=== PATIENT | female | born 1970 | race Caucasian/White ===

== ENCOUNTER → 2021-10-30 | Outpatient (CLI) | payer OTHER | LOC: M.WC 07:59 | PROVIDERS: ATTEND Family Medicine | DX: E11.621 Type 2 diabetes mellitus with foot ulcer (principal); L97.522 Non-pressure chronic ulcer of other part of left foot with fat layer exposed; E11.42 Type 2 diabetes mellitus with diabetic polyneuropathy; E89.0 Postprocedural hypothyroidism; Z79.84 Long term (current) use of oral hypoglycemic drugs; Z79.899 Other long term (current) drug therapy; Z90.49 Acquired absence of other specified parts of digestive tract ==

== ENCOUNTER 2021-11-04 22:27 | Inpatient (IN) | payer OTHER ==
[~2021-11-04] VITALS: Ht 172.7 cm; Wt 158.8 kg
--- NOTE | ~2021-11-04 | OP ---
[address] [address] OPERATIVE REPORT Name: ANNA MEDINA Room: [address] IN M.R.#: [id number] Admission: 11/05/21 Attend Phys: Mendoza Shelby MD Discharge: Date of : 74 Report #: [id number] THIS REPORT FOR: cc: Suzette Cordon MD, Tuongvan T. MD Rizzi, Raymond M. DPM ~ DATE OF SURGERY: 11/11/2021 PREOPERATIVE DIAGNOSIS: Left gas gangrene foot. POSTOPERATIVE DIAGNOSIS: Left gas gangrene foot. PROCEDURE: Delayed wound closure with debridement, subcutaneous and tendon, approximately an 8 x 5 cm debridement area at about 2 cm in depth. It was excisional. ANESTHESIA: General with a local block consisting of 10 mL of 0.5% Marcaine. TOURNIQUET: None. DESCRIPTION OF PROCEDURE: The patient was transferred to the operating room and placed on the operating table in supine position. General anesthesia was administered and left lower extremity was prepped and draped in the usual sterile manner. Previous partial first ray resection was evaluated. There was noted to be sparse areas and islands of necrotic tissue and friable tissue, which was removed with a 15 blade and Metzenbaum scissors. I also trimmed up the edges of the wound to make it healthy and take away any compromised tissue. I noted good bleeding tissue and was done doing this and all tendinous material, capsular material or tissue present I removed with the Metzenbaum scissors and tenotomy. I washed it out thoroughly with normal saline, bacitracin and then closed the wound using 2-0 nylon simple suture technique. Dressed with Xeroform, fluffs, Florentino, and Kerlix and Ford bandage. Delayed wound closure and debridement were done. This is subcutaneous excisional of the subcutaneous and tendinous tissue. By: [id number] Davis DPM /nt
[2021-11-04 22:34] VITALS: BP 136/80
[2021-11-04] MEDS ORDERED: LISINOPRIL30 MG PO (22:40)
[2021-11-04] MEDS ORDERED: METFORMIN HCL500 M3 PO (22:40)
[2021-11-04] MEDS ORDERED: FARXIGA5 MG PO (22:40)
[2021-11-04] MEDS ORDERED: OZEMPIC0.25 MG/0. SUBQ (22:41)
[2021-11-04] MEDS ORDERED: LEVO-T75 MCG PO (22:41)
[2021-11-05 01:40] LABS: ABSOLUTE LYMPHOCYTES 1.1 thou/uL (0.8-5.3); ABSOLUTE MONOCYTES 0.8 thou/uL (0.0-1.2); ABSOLUTE NEUTROPHILS 11.2 thou/uL (1.6-8.1); BASOPHILS 0.4 %; EOSINOPHILS 0.3 %; HEMATOCRIT 30.5 % (37.0-47.0); HEMOGLOBIN 10.5 gm/dL (12.0-15.0); LYMPHOCYTES 8.2 %; MCHC 34.4 g/dL (28.0-37.0); MONOCYTES 6.3 %; MPV 6.8 fl. (7.2-11.1); NUCLEATED RBCS 0 /100WBC; PLATELET COUNT* 504 thou/uL (150-400); POLYS 84.8 %; RDW-CV 14.3 % (10.5-14.5); WBC 13.2 thou/uL (4.0-11.0)
[2021-11-05 01:53] LABS: CALCIUM 8.9 mg/dL (8.5-10.1); CREATININE 1.6 mg/dL (0.6-1.3); POTASSIUM 4.3 mmol/L (3.5-5.1)
[2021-11-05 01:54] LABS: APTT 33.4 Seconds (25.0-31.3); INR 1.1; PROTIME 11.7 Seconds (9.20-11.50)
[2021-11-05 01:57] LABS: ALBUMIN 2.4 g/dL (3.4-5.0); MAGNESIUM 2.3 mg/dL (1.8-2.4); TOTAL BILIRUBIN 0.5 mg/dL (<0.1-1.0)
[2021-11-05 02:13] LABS: BE -0.4 mmol/L (-2 to +3); PCO2 30.7 mmHg (35.0-45.0)
[2021-11-05 02:24] LABS: PO2 57.2 mmHg (75.0-100.0)
[2021-11-05 05:41] VITALS: BP 115/85
[2021-11-05 06:14] LABS: URINE BLOOD NEGATIVE (Negative); URINE CLARITY SL CLOUDY; URINE COLOR YELLOW; URINE GLUCOSE-RANDOM 3+ (Negative); URINE KETONES TRACE (Negative); URINE LEUKOCYTES-REFLEX TRACE (Negative); URINE NITRITE-REFLEX NEGATIVE (Negative); URINE PROTEIN 1+ (Negative); URINE UROBILINOGEN 0.2 E.U./dl (0.2-1.0)
[2021-11-05 06:18] LABS: ICTOTEST (BILI CONFIRMATORY) Negative (Negative); URINE BILIRUBIN 1+ (Negative)
[2021-11-05 06:51] LABS: YEAST-REFLEX Present (None Seen)
[2021-11-05 06:53] LABS: FINE GRANULAR CASTS >10 Many /LPF (None Seen); SQUAMOUS 0-3 Few /LPF (0-3); URINE WBC-REFLEX 6-15 Few /HPF (0-5)
[2021-11-05 06:54] LABS: URINE RBC None Seen /HPF (0-2)
[2021-11-05 06:55] LABS: CRYSTALS None Seen /LPF (None Seen)
[2021-11-05 10:46] VITALS: BP 136/88
[2021-11-05 14:44] VITALS: BP 133/65
[2021-11-05 16:36] VITALS: BP 138/78
[2021-11-05 17:00] VITALS: BP 115/62
--- NOTE | 2021-11-05 17:51 | NUR ---
THE PATIENT ARRIVED AT 1650. THE PATIENT IS ALERT X4. LEFT TOE WOUND OPEN AND DRAINAGE NOTED. DENIES PAIN. LAST BOWEL MOVEMENT 11/05/21. LUNG DIMINSHED. THE PATIENT IS UP AD RELL. CALL LIGHT WITHIN REACH.
[2021-11-05 22:30] VITALS: BP 125/74
[2021-11-06] VITALS: BP 117/66
[2021-11-06 03:58] LABS: HEMATOCRIT 26.6 % (37.0-47.0); HEMOGLOBIN 8.7 gm/dL (12.0-15.0)
[2021-11-06 04:00] VITALS: BP 121/72
--- NOTE | 2021-11-06 05:36 | NUR ---
PT AO X4, WENT TO SURGERY ON RT FOOT. SURGICAL BANDAGE WRAPPED WITH MEGAN. PT UP TO BSC AND THEN HAD SOME BLEEDING. FOOT ELEVATED AND DRAINAGE OUTLINED FOR MONITOR. NO COMPLAINT OF PAIN. VSS, PT ON 2L PER NC CALL LIGHT IN REACH AND ENCOURAGED.
--- NOTE | 2021-11-06 10:12 | NUR ---
Pt is admitted to the hospital on 11/05/21 with Toe Ulcer, Cellulitis, and Covid Pneumonia. Pt is alert and oriented. Pt lives in a house with 4 steps to enter. Pt reports she was independent with ADL's and Mobility. NO hx of DME, HH, or SNF. Pt had an initial appointment in the wound care center but was schedulted for her second appointment today. Pt has no hx of IV antibiotics at home. CM to follow for possible need of IV antibiotics at home and home health.
[2021-11-06 12:43] LABS: HEMOGLOBIN 9.3 gm/dL (12.0-15.0); MCH 29.6 pg (26.0-34.0); MCHC 33.3 g/dL (28.0-37.0); MCV 88.7 fL (80.0-100.0); MPV 6.8 fl. (7.2-11.1); NUCLEATED RBCS 0 /100WBC; PLATELET COUNT* 526 thou/uL (150-400); RBC 3.15 mil/uL (4.20-5.00); RDW-CV 14.1 % (10.5-14.5); WBC 11.8 thou/uL (4.0-11.0)
[2021-11-06 12:51] VITALS: BP 147/80
[2021-11-06 12:56] LABS: ALBUMIN 1.9 g/dL (3.4-5.0); CALCIUM 8.8 mg/dL (8.5-10.1); CREATININE 1.6 mg/dL (0.6-1.3); TOTAL BILIRUBIN 0.3 mg/dL (<0.1-1.0); TOTAL PROTEIN 7.1 g/dL (6.4-8.2)
[2021-11-06 13:23] LABS: ABSOLUTE BASOPHILS 0.1 thou/uL (0.0-0.2); ABSOLUTE LYMPHOCYTES 1.3 thou/uL (0.8-5.3); ABSOLUTE MONOCYTES 0.5 thou/uL (0.0-1.2); ABSOLUTE NEUTROPHILS 9.9 thou/uL (1.6-8.1); PLATELET ESTIMATE INCREASED
[2021-11-06 15:45] VITALS: BP 122/74
--- NOTE | 2021-11-06 18:58 | H ---
[place] [address] HISTORY AND PHYSICAL Name: ANNA MEDINA Room: [address] IN M.R.#: [id number] Admission: 11/05/21 Attend Phys: Mendoza Shelby MD Discharge: Date of : 74 Report #: [id number] THIS REPORT FOR: cc: Suzette Cordon MD, Tuongvan T. MD Rizzi, Raymond M. DPM ~ ADMIT DATE: 11/05/2021 INTRODUCTION: This is a 50-year-old white female with a left foot infection with gas gangrene. HISTORY OF PRESENT ILLNESS: This is a 50-year-old white female who was seen at [facility] with a left foot necrotic hallux. The patient said the wound was first seen by another physician on Tuesday, but the wound has been progressing since then, increased redness, increased swelling, increased drainage and odor. PAST MEDICAL HISTORY: Noted for diabetes, neuropathy, hypertension, hypothyroidism. MEDICATIONS: Farxiga, metformin, lisinopril, Ozempic and levothyroxine. ALLERGIES: SULFA. FAMILY HISTORY: Noncontributory PREVIOUS SURGERIES: Noncontributory. SOCIAL HISTORY: The patient has no history of recreational drugs. No history of alcohol use. PHYSICAL EXAMINATION: GENERAL: Well-developed, well-nourished female in no acute distress. HEENT: PERRLA. NECK: Supple. HEART: Regular rate and rhythm. LUNGS: Clear to auscultation. EXTREMITIES: Lower extremity exam shows a very erythematous left foot, especially in the medial column and first and second areas with redness over the total dorsal aspect of the foot. There is a strong odor and that left hallux looks nonviable. She has an area about 4 cm proximal to the base of the proximal phalanx of the hallux. There is necrotic patch and a purplish hue presenting as most likely necrotic tissue. There is also some fluct[place] [address] HISTORY AND PHYSICAL Name: ANNA MEDINA Room: [address] IN ..#: [id number] Admission: 11/05/21 Attend Phys: Mendoza Shelby MD Discharge: Date of : 74 Report #: [id number] DIAGNOSTIC DATA: X-ray showed gas in this area. LABORATORY DATA: The patient's blood sugar is 281. White blood cell count is 13.2. Blood flow is palpable to posterior tib, but not the dorsalis pedis of the left foot. ASSESSMENT AND PLAN: The patient has gas gangrene of left foot with a necrotic left hallux. The patient is set up for a surgery as soon as possible for a partial first ray resection. This surgery will be staged. We will try to see if we can save as much as the foot as possible by doing just a minimal today of removing all necrotic tissue and stopping the process of this gas gangrene and significant infection. The patient understands she has a possibility of having a transmet here in the next couple days as well depending on what we see intraoperatively. The patient is n.p.o. and I have talked to the ER involved and also the OR for surgery as soon as possible. <ELECTRONICALLY SIGNED> By: Pete Davis DPM 11/06/21 1858 [id number] [id number] Davis DPM /nt
--- NOTE | 2021-11-06 18:58 | NUR ---
CM FOLLOWUP PT NOT MED CLEAR. PT POSTOP AND MAY NEED IV ANTIBIOTICS. PT EXPECTED TO REMAIN AT [facility] THROUGH [facility]KN[facility]. CM TO FOLLOW.
--- NOTE | 2021-11-06 18:58 | OP ---
[address] [address] OPERATIVE REPORT Name: ANAN MEDINA Room: [address] IN M.R.#: [id number] Admission: 11/05/21 Attend Phys: Mendoza Shelby MD Discharge: Date of : 74 Report #: [id number] THIS REPORT FOR: cc: Suzette Cordon MD, Tuongvan T. MD Rizzi, Raymond M. DPM ~ DATE OF SURGERY: 11/05/2021 PREOPERATIVE DIAGNOSIS: Left foot gas gangrene, medial foot. POSTOPERATIVE DIAGNOSIS: Left foot gas gangrene, medial foot. PROCEDURES: 1. Partial first ray resection, left foot. 2. Debridement, left foot subcutaneous and tendon, 6 cm x 3 cm. ANESTHESIA: General. TOURNIQUET: None. DESCRIPTION OF PROCEDURE: The patient was transported to the operating room and placed on the operating table in supine position. It should be noted that the patient was positive for COVID-19, so necessary precautions were taken. After the patient was prepped and draped in the usual manner, an incision was made along the dorsal aspect of the first MPJ with a racquet-type incision around the hallux, disarticulating the hallux from the first metatarsal. It should be noted that when I made the incision, significant amount of purulence was noted and gas was released. Deep tissue was sent for aerobic and fungal and then I dissected free the metatarsal and resected approximately one-half of it. I also removed the sesamoids. I noted that the infection was traveling down plantarly along the tendon sheath and somewhat dorsally and laterally. I cleaned out all necrotic tissue, questionable infected tissue in this area as well and got to mostly good bleeding tissue. I made a second incision going lateral across the metatarsal heads where the infection was traveling and tunneling. I removed any questionable tissue including deep fascia and part of the tendon as well. This left only good bleeding tissue. I washed out thoroughly and I loosely closed it with retention sutures with 2-0 nylon. I wanted to keep the flaps ____. Dressed with fluffs, Kerlix and Ford bandage. The patient tolerated the procedure well and left the operating room in stable condition with vital signs and vascular status intact. The patient will have the second surgery sometime soon, probably in the next 3-5 days, most likely on a Tuesday or Tuesday ____ . Today is night. [place] [address] OPERATIVE REPORT Name: ANNA MEDINA Room: [address] IN ..#: [id number] Admission: 11/05/21 Attend Phys: Mendoza Shelby MD Discharge: Date of : 74 Report #: [id number] postop shoe for balance and pivoting and may take couple of steps. I expect the patient will do well. She is able to be compliant. <ELECTRONICALLY SIGNED> By: Pete Davis DPM 11/06/21 [phone] 2000Ramarguerite Davis DPM /nt
--- NOTE | 2021-11-06 19:45 | NUR ---
ASSUMED CARE AT 1030. PT IS ALERT AND ORIENTED. ASSESSMENT DONE. PT IS ON 3LITERS OF OXYGEN. PT HAD UNEVENTFUL DAY. WILL CONTINUE TO PROVIDE CARE FOR PATIENT.
[2021-11-06 20:30] VITALS: BP 139/68
[2021-11-07] VITALS: BP 141/82
[2021-11-07 04:55] LABS: ABSOLUTE BASOPHILS 0.1 thou/uL (0.0-0.2); ABSOLUTE MONOCYTES 0.8 thou/uL (0.0-1.2); ABSOLUTE NEUTROPHILS 12.2 thou/uL (1.6-8.1); BASOPHILS 0.5 %; HEMATOCRIT 26.6 % (37.0-47.0); HEMOGLOBIN 9.1 gm/dL (12.0-15.0); LYMPHOCYTES 6.8 %; MCH 30.1 pg (26.0-34.0); MCHC 34.1 g/dL (28.0-37.0); MCV 88.2 fL (80.0-100.0); MONOCYTES 5.8 %; MPV 7.2 fl. (7.2-11.1); NUCLEATED RBCS 0 /100WBC; PLATELET COUNT* 535 thou/uL (150-400); POLYS 86.9 %; RBC 3.02 mil/uL (4.20-5.00); RDW-CV 14.3 % (10.5-14.5)
[2021-11-07 05:07] LABS: ALBUMIN 1.8 g/dL (3.4-5.0); CALCIUM 8.6 mg/dL (8.5-10.1); CREATININE 1.6 mg/dL (0.6-1.3); POTASSIUM 4.7 mmol/L (3.5-5.1); TOTAL BILIRUBIN 0.1 mg/dL (<0.1-1.0); TOTAL PROTEIN 6.8 g/dL (6.4-8.2)
[2021-11-07 05:08] LABS: PREALBUMIN 11.5 mg/dL (18.0-35.7)
--- NOTE | 2021-11-07 05:30 | NUR ---
PT AO X4, VSS THIS PM SHIFT. SHE IS PO DAY 1 FOR LT GRT TOE SURG. SHE DENIES PAIN. DSG HAS DRIED BLOOD BUT NO ACTIVE BLEEDING AT THIS TIME, SHE HAS SURGICAL SHOE ON FOR PROTECTION AND IS USING WALKER WITH HEEL TOUCH TO PIVOT TO [facility] WITH NO PROBLEM. PT IS ON 3L NC AND REPORTS A COUGH THAT HAS THICK WHITE PRODUCTION. THIS RN WILL HAVE DAYSHIFT CLARIFY IF PT IS TO HAVE MRI BEFORE NEXT SURG AT BEGINING OF WEEK WELL WHEN DSG CHANGES SHOULD START. CALL LIGHT IN REACH FOR PT SAFETY.
[2021-11-07 10:30] VITALS: BP 149/89
[2021-11-07 12:00] VITALS: BP 139/68
[2021-11-07 18:26] VITALS: BP 148/77
[2021-11-07 20:00] VITALS: BP 150/84
[2021-11-08] VITALS: BP 140/79
[2021-11-08 04:00] VITALS: BP 165/86
[2021-11-08 04:38] LABS: ABSOLUTE LYMPHOCYTES 1.2 thou/uL (0.8-5.3); ABSOLUTE MONOCYTES 0.8 thou/uL (0.0-1.2); BASOPHILS 0.2 %; EOSINOPHILS 0.1 %; HEMATOCRIT 29.7 % (37.0-47.0); LYMPHOCYTES 10.7 %; MCH 29.7 pg (26.0-34.0); MCHC 33.5 g/dL (28.0-37.0); MCV 88.6 fL (80.0-100.0); MONOCYTES 6.9 %; MPV 6.8 fl. (7.2-11.1); NUCLEATED RBCS 0 /100WBC; PLATELET COUNT* 591 thou/uL (150-400); POLYS 82.1 %; RBC 3.36 mil/uL (4.20-5.00); RDW-CV 14.4 % (10.5-14.5); WBC 10.9 thou/uL (4.0-11.0)
[2021-11-08 05:03] LABS: PREALBUMIN 14.4 mg/dL (18.0-35.7)
[2021-11-08 05:04] LABS: ALBUMIN 1.8 g/dL (3.4-5.0); CALCIUM 8.3 mg/dL (8.5-10.1); CREATININE 1.4 mg/dL (0.6-1.3); POTASSIUM 4.4 mmol/L (3.5-5.1); TOTAL BILIRUBIN 0.2 mg/dL (<0.1-1.0); TOTAL PROTEIN 6.5 g/dL (6.4-8.2)
--- NOTE | 2021-11-08 05:49 | NUR ---
ASSUMED CARE OF PT AFTER REPORT AT 1930. PT A&OX4. VSS. PHYSICAL ASSESSMENT COMPLETED AND CHARTED. PT ON O2 AT 3L NC. PT TRACING SR ON TELE. PT DENIES ANY PAIN. MAINTAINED ON ENHANCED PRECAUTIONS. CALL LIGHT WITHIN REACH.
[2021-11-08 10:00] VITALS: BP 152/88
[2021-11-08 12:50] VITALS: BP 137/82
[2021-11-08 20:00] VITALS: BP 166/80
[2021-11-09 00:51] VITALS: BP 141/69
[2021-11-09 04:00] VITALS: BP 140/72
[2021-11-09 04:06] LABS: ABSOLUTE LYMPHOCYTES 1.8 thou/uL (0.8-5.3); ABSOLUTE MONOCYTES 0.8 thou/uL (0.0-1.2); ABSOLUTE NEUTROPHILS 8.3 thou/uL (1.6-8.1); BASOPHILS 0.1 %; EOSINOPHILS 0.4 %; HEMATOCRIT 28.2 % (37.0-47.0); HEMOGLOBIN 9.5 gm/dL (12.0-15.0); LYMPHOCYTES 16.2 %; MCH 29.8 pg (26.0-34.0); MCHC 33.7 g/dL (28.0-37.0); MCV 88.5 fL (80.0-100.0); MONOCYTES 7.6 %; MPV 6.7 fl. (7.2-11.1); NUCLEATED RBCS 0 /100WBC; PLATELET COUNT* 584 thou/uL (150-400); POLYS 75.7 %; RBC 3.19 mil/uL (4.20-5.00); RDW-CV 14.3 % (10.5-14.5)
[2021-11-09 04:36] LABS: ALBUMIN 1.9 g/dL (3.4-5.0); CALCIUM 8.3 mg/dL (8.5-10.1); CREATININE 1.7 mg/dL (0.6-1.3); POTASSIUM 4.4 mmol/L (3.5-5.1); TOTAL BILIRUBIN 0.2 mg/dL (<0.1-1.0)
[2021-11-09 05:04] LABS: TOTAL PROTEIN 6.6 g/dL (6.4-8.2)
[2021-11-09 07:45] VITALS: BP 146/66
--- NOTE | 2021-11-09 07:55 | NUR ---
ASSUMED CARE OF PT AFTER REPORT AT 1930. PT A&OX4. VSS. PHYSICAL ASSESSMENT COMPLETED AND CHARTED. PT ON RA. PT TRACING SR ON TELE. PT DENIES ANY PAIN. MAINTAINED ON ENHANCED PRECAUTIONS. PT INSTRUCTED ON NPO POST MIDNIGHT FOR POSSIBLE SURGERY TODAY. COMMUNICATES UNDERSTANDING. CALL LIGHT WITHIN REACH.
--- NOTE | 2021-11-09 11:44 | NUR ---
Nutrition: Pt admitted with COVID. Assessed for high BMI. Wt: 350#. NPO for possible toe surgery today. Meds: insulin, albuterol. Labs: BG 254-192, alb 1.9, prealb 18.4. PMHx: DM, OBE, CRF, PN. Diabetic toe ulcer. Once diet advances after surgery, consider Dominick for wound healing. Consider mild nutrition risk at this time. RD will follow up 11/12/21.
[2021-11-09 12:11] VITALS: BP 172/93
--- NOTE | 2021-11-09 14:46 | NUR ---
CM FOLLOWUP PT NOT YET MEDICALLY CLEAR A SECOND LOOK SURGERY IS PENDING. PT MAY NEED IV ANTIBIOTICS UPON DC. PT AWAITING [facility] PAPERWORK FOR PROVIDER TO REVIEW. CM TO FOLLOWUP FOR DC PLANNING NEEDS.
[2021-11-09 17:18] VITALS: BP 116/56
[2021-11-09 20:00] VITALS: BP 127/63
[2021-11-10] VITALS: BP 145/86
[2021-11-10 04:11] VITALS: BP 158/92
[2021-11-10 05:30] LABS: HEMOGLOBIN 9.8 gm/dL (12.0-15.0); MCH 29.1 pg (26.0-34.0); MCHC 32.8 g/dL (28.0-37.0); MCV 88.6 fL (80.0-100.0); MPV 6.5 fl. (7.2-11.1); NUCLEATED RBCS 0 /100WBC; PLATELET COUNT* 604 thou/uL (150-400); RBC 3.39 mil/uL (4.20-5.00); RDW-CV 14.3 % (10.5-14.5); WBC 11.6 thou/uL (4.0-11.0)
[2021-11-10 05:36] LABS: CALCIUM 8.4 mg/dL (8.5-10.1); CREATININE 1.3 mg/dL (0.6-1.3); POTASSIUM 4.3 mmol/L (3.5-5.1); TOTAL BILIRUBIN 0.2 mg/dL (<0.1-1.0); TOTAL PROTEIN 6.7 g/dL (6.4-8.2)
[2021-11-10 06:11] LABS: ABSOLUTE EOSINOPHILS 0.1 thou/uL (0.0-0.7); ABSOLUTE LYMPHOCYTES 2.1 thou/uL (0.8-5.3); ABSOLUTE MONOCYTES 0.7 thou/uL (0.0-1.2); ABSOLUTE NEUTROPHILS 8.7 thou/uL (1.6-8.1); PLATELET ESTIMATE ADEQUATE
--- NOTE | 2021-11-10 08:03 | NUR ---
ASSUMED CARE OF PT AFTER REPORT AT 1930. PT A&OX4. VSS. PHYSICAL ASSESSMENT COMPLETED AND CHARTED. PT ON RA. PT TRACING SR ON TELE. PT DENIES ANY PAIN.CALL LIGHT WITHIN REACH.
[2021-11-10 10:18] VITALS: BP 124/78
[2021-11-10 11:30] VITALS: BP 140/96
--- NOTE | 2021-11-10 15:58 | NUR ---
CM FOLLOWUP PT NOT YET MED CLEAR AND ANTICIPATED TO HAVE A SECOND SURGERY ON 11/11/21. PT MAY NEED IV ANTIBIOTICS UPON DC. CM TO FOLLOW FOR DC PLANNING NEEDS.
--- NOTE | 2021-11-10 18:39 | NUR ---
Pt had MID line placed to SHERRI per PICC RN. IV to dc'd. Reports feeling well today. VSS. Will be NPO after MN tonight for surgery to foot tomorrow. Will continue to monitor.
[2021-11-10 20:00] VITALS: BP 151/77
[2021-11-11 00:20] VITALS: BP 152/85
[2021-11-11 04:35] VITALS: BP 170/84
[2021-11-11 08:00] VITALS: BP 184/95
--- NOTE | 2021-11-11 08:10 | NUR ---
ASSUMED CARE OF PT AFTER REPORT AT 1930. PT A&OX4. VSS. PHYSICAL ASSESSMENT COMPLETED AND CHARTED. PT ON RA. PT TRACING SR ON TELE. INSTRUCTED ON NPO POST MIDNIGHT FOR SURGERY TODAY. COMMUNICATES UNDERTSTANDING. CALL LIGHT WITHIN REACH.
--- NOTE | 2021-11-11 13:08 | PATH ---
[address] [address] PATHOLOGY RPT PROCEDURE Name: ANNA MEDINA Room: [address] IN M.R.#: [id number] Admission: 11/05/21 Date of : 74 Discharge: Report #: [id number] Path Case #: [id number] [facility] Accession Number: [id number] . 01 Material submitted: . hallux - LEFT GREAT TOE. Modifiers: left . 01 Clinical history: . METATARSAL HEAD RESECTION . 02 Diagnosis: Left great toe: - Benign great toe with nonspecific ulceration, necrosis and extensive acute inflammation of soft tissues and osteomyelitis of underlying phalangeal bone. - Separate benign osteocartilaginous segment with acute inflammation of attached soft tissues and without osteomyelitis. (ROSY:jared; 11/10/2021) MBSharif 11/10/2021 1635 Local . 02 Electronically signed: . Yo Ochoa MD, Pathologist NPI- [id number] . 01 Gross description: . The specimen is received in formalin, labeled "Anna Medina, left great toe" and consists of a disarticulated amputated toe (0.7 cm in length by 0.6 x 3.0 cm) which displays a discoid, well-circumscribed ulcer (1.8 x 1.7 cm) on the distal ventral surface that comes to within 3.3 cm from the nearest surgical margin (inked black). The entirety of the dorsal surface displays a green to blue-purple, peeling area of discoloration (6.2 x 5.5 cm) that involves the surgical margin. The soft tissue at the surgical margin is dusky and the articular surface is smooth and unremarkable. The attached nail is yellow and focally thickened. Sectioning reveals focally softened and necrotic underlying bone. Also received in the same container are 3 meeks-ward, rubbery, dusky and necrotic portions of soft irregular tissues (3.5 x 3.0 x 1.2 cm in aggregate). Sectioning reveals dusky and necrotic cut surfaces. Also received in the same container is an additional bone segment (3.5 cm in length by 2.3 x 2.0 cm) with abundant attached soft tissue. One end is smooth, hard and previously transected (inked blue), the opposing end displays a smooth unremarkable articular surface. Sectioning reveals unremarkable underlying bone. Finishing Department Supervisor sections are submitted following decalcification as follows: A1: Skin and underlying soft tissue at toe surgical margin, submitted en face, represented A2: Bone at margin, submitted on edge, represented A3: Distal lengthwise sectioned of toe [place] [id number] PATHOLOGY RPT PROCEDURE Name: ANNA MEDINA Room: [address] IN M.R.#: [id number] Admission: 11/05/21 Date of : 74 Discharge: Report #: [id number] Path Case #: [id number] softened bone, represented A4: Ventral area of discoloration, represented A5: Additional soft tissues, represented A6-A7: A contiguous bisected section of the additional bone segment, represented ([place]; 11/09/2021) DKA/DKA 11/09/2021 1141 Local . 02 Pathologist provided ICD-10: L97.529, I96, M79.9, M86.172 . 02 CPT . 596562, [id number] Specimen Comment: A courtesy copy of this report has been sent to [phone], [phone] Specimen Comment: [phone], Specimen Comment: Report sent to , DR ABDI / DR BUCHANAN Performed at: 01 [facility] [address] [place] [address] [address], [place], [place] [address] MD Vikash Lucia MD Phone: [phone] Performed at: 02 [facility] [place] [address] [address], [place], [place] [id number] MD Yo Ochoa MD Phone: [phone]
--- NOTE | 2021-11-11 16:21 | NUR ---
CM FOLLOWUP PT NOT MED CLEAR, BUT MAY BE MED CLEAR 11/12/21.PT MAY NEED IV ANTIBIOTICS UPON DC. CM TO FOLLOW FOR DC NEEDS.
[2021-11-11 17:26] VITALS: BP 134/62
[2021-11-11 20:00] VITALS: BP 131/63
[2021-11-12 02:35] VITALS: BP 119/60
[2021-11-12 05:53] VITALS: BP 143/84
--- NOTE | 2021-11-12 06:27 | NUR ---
ASSUMED CARE OF PT AFTER REPORT AT 1930. PT A&OX4. VSS. PHYSICAL ASSESSMENT COMPLETED AND CHARTED. PT ON RA. PT TRACING SR/SB ON TELE. PT DENIES ANY PAIN. CALL LIGHT WITHIN REACH.
[2021-11-12 08:55] VITALS: BP 153/87
[2021-11-12] MEDS ORDERED: METHYLPREDNISOL32 MG PO (11:18)
[2021-11-12] MEDS ORDERED: METRONIDAZOLE500 M4 PO (11:18)
[2021-11-12] MEDS ORDERED: CEFDINIR300 MG PO (11:18)
[2021-11-12 11:23] VITALS: BP 153/87
--- NOTE | 2021-11-12 11:51 | NUR ---
Nutrition: reassessment. Pt has discharge orders. Wt is stable. Protein stores trending up, alb 2, prealb 28.7.
[2021-11-12 14:56] VITALS: BP 136/78
--- NOTE | 2021-11-12 19:11 | NUR ---
CM FOLLOWUP PT MED CLEAR. PT TO DC HOME WITH NO CM NEEDS.
== END 2021-11-12 18:00 | disposition home or self-care (01) | DRG 853 ==
LOC: M.ERS 22:27 → M.TBA-ER 11-05 02:35 → M.ORTHSURG 11-05 02:35 → M.2W 11-06 16:44 → M.ORTHSURG 11-06 16:47
PROVIDERS: Personal Emergency Response Attendant; Podiatrist Foot & Ankle Surgery; ADMIT Internal Medicine; ATTEND Internal Medicine
PROC: 0Y6N0Z9 Detachment at Left Foot, Partial 1st Ray, Open Approach (ICD-10-PCS; principal; 2021-11-05)
PROC: XW033E5 Introduction of Remdesivir Anti-infective into Peripheral Vein, Percutaneous Approach, New Technology Group 5 (ICD-10-PCS; principal; 2021-11-05)
PROC: 0LBW0ZZ Excision of Left Foot Tendon, Open Approach (ICD-10-PCS; principal; 2021-11-05)
PROC: 05HC33Z Insertion of Infusion Device into Left Basilic Vein, Percutaneous Approach (ICD-10-PCS; 2021-11-10)
PROC: 0YQN0ZZ Repair Left Foot, Open Approach (ICD-10-PCS; 2021-11-11)
PROC: 0LBW0ZZ Excision of Left Foot Tendon, Open Approach (ICD-10-PCS; 2021-11-11)
DX: A41.9 Sepsis, unspecified organism (principal); U07.1 COVID-19; A48.0 Gas gangrene; J96.01 Acute respiratory failure with hypoxia; J15.6 Pneumonia due to other Gram-negative bacteria; J12.82 Pneumonia due to coronavirus disease 2019; E11.52 Type 2 diabetes mellitus with diabetic peripheral angiopathy with gangrene; E87.1 Hypo-osmolality and hyponatremia; N39.0 Urinary tract infection, site not specified; N17.9 Acute kidney failure, unspecified; Z68.43 Body mass index [BMI] 50.0-59.9, adult; E11.621 Type 2 diabetes mellitus with foot ulcer; L97.529 Non-pressure chronic ulcer of other part of left foot with unspecified severity; E11.22 Type 2 diabetes mellitus with diabetic chronic kidney disease; N18.9 Chronic kidney disease, unspecified; E11.42 Type 2 diabetes mellitus with diabetic polyneuropathy; E11.65 Type 2 diabetes mellitus with hyperglycemia; E03.9 Hypothyroidism, unspecified; I12.9 Hypertensive chronic kidney disease with stage 1 through stage 4 chronic kidney disease, or unspecified chronic kidney disease; B96.89 Other specified bacterial agents as the cause of diseases classified elsewhere; L03.032 Cellulitis of left toe; E66.01 Morbid (severe) obesity due to excess calories; G47.33 Obstructive sleep apnea (adult) (pediatric); Z88.2 Allergy status to sulfonamides; Z88.8 Allergy status to other drugs, medicaments and biological substances